=== PATIENT | female | born 1995 | race Caucasian/White ===

== ENCOUNTER 2017-12-25 18:44 | Emergency (ER) | payer MEDICAID ==
[2017-12-25 19:41] LABS: % EOSINOPHILS 2.2 % (0.0-5.0); % LYMPHOCYTES 19.9 % (20.0-50.0); % MONOCYTES 5.8 % (2.0-10.0); % NEUTROPHILS 72.1 % (40.0-80.0); EOSINOPHILE ABSOLUTE 0.3 Th/cmm (0.1-0.4); HEMATOCRIT 37.8 % (41.0-60); HEMOGLOBIN 12.5 gm/dL (12-16); LYMPHOCYTE ABSOLUTE 2.3 Th/cmm (1.5-3.0); MEAN CORPUSCULAR HEMOGLOBIN 28.8 pg (27.0-31.0); MEAN CORPUSCULAR HGB CONC 33.1 pg (28.0-36.0); MEAN PLATELET VOLUME 8.4 fl; MONOCYTE ABSOLUTE 0.7 Th/cmm (0.3-1.0); NEUTROPHILE ABSOLUTE 8.4 Th/cmm (1.8-8.0); PLATELET COUNT 260 Th/cmm (150-400); RED BLOOD COUNT 4.35 Mil/cmm (3.80-5.10); RED CELL DISTRIBUTION WIDTH 16.9 % (11.5-20.0); WHITE BLOOD COUNT 11.7 Th/cmm (4.8-10.8)
[2017-12-25] MEDS: cefTRIAXone 1 GM in Sodium Chloride 0.9% 50 ML IV ONE (19:45)
--- NOTE | 2017-12-25 19:54 | ER Physician Documentation ---
DATE OF SERVICE: 12/25/2017 EMERGENCY ROOM EVALUATION AND TREATMENT She is a 22-year-old just got 2 months ago and the patient had a boil about the middle upper, middle part of the thigh and actually patient was shaving and most likely it is from the shaving that she might have got some boil developed over in that area and the patient had some purulent discharge and still about an inch in size, a boil type thing is there, redness is there, warmth is there and still somewhat painful. The patient, hence came to the hospital. The patient will be given ceftriaxone, vancomycin and oral antibiotics, some lab workup would be done. HISTORY OF PRESENT ILLNESS: The patient has been stable for one week and then it is getting worse, but after the purulent discharge came out, she feels a little better. REVIEW OF SYSTEMS: A 12-point review of systems is essentially benign and negative. EYES: No history of double vision, blurring blindness. CENTRAL NERVOUS SYSTEM: No history of TIA, stroke, encephalitis, meningitis. PULMONARY: No history of pneumonia, TB, pulmonary embolism, etc. Occasionally smokes weed. GASTROINTESTINAL WISEE: The patient does not have any diarrhea, constipation, vomiting. No history of abdominal pain. The patient had a baby about 2 months ago. This is a girl delivered in October, normal vaginal delivery. The patient till now had about 3 children, first one was a premature at 35 weeks. This last one is premature at 36 weeks and the second one was a normal delivery. ENDOCRINE: No history of diabetes mellitus. No history of elevated blood sugars. No history of obesity noted at least reported to us but the weight according to her height is somewhat higher. Her height is 5 feet 6 inches, weighing 170 pounds, which is somewhat higher point. GENITOURINARY: No burning, frequency, dysuria, pelvic inflammatory disease is absent. No tenderness in the upper abdomen. Christianson sign is negative. No tenderness in the lower abdomen. So, 12-point review of systems is essentially negative. Cancer, etc., is negative. PHYSICAL EXAMINATION: VITAL SIGNS: Temperature is 98.2, pulse is 118, respirations 18, blood pressure 112/67, oxygen saturation is 99%. Last menstrual period was 1 month ago. Vaccinations are all okay. Tetanus etc., are all okay. Other general examination is all benign and negative. Peripheral pulses demonstrated a normal. Neuro exam is benign and negative. No meningeal signs. No evidence of any seizures, convulsions, paralysis, etc. The patient has a boil about 1 inch size in the left upper inner part of the thigh. She says while she was shaving maybe it might have been some injury because of shaving leading to this thing. She does not have diabetes mellitus. She does not have excessive sugar. Her grandmother and grandparents have diabetes mellitus, but father, mother, brother, sisters, nobody has any diabetes mellitus. The patient will be given ceftriaxone and vancomycin and lab workup in the form of CBC, CMP, lactic acid, A1c panel will be done and if everything is reasonably good the patient will be discharged home. There is no discharge coming out from that site. Peripheral pulses are normal. CLINICAL IMPRESSION: 1. The boil is present. 2. Other history that she gives is that the patient has 2 premature, first one and the third one, 35 weeks and 36 weeks. 3. Grandparents have diabetes mellitus. Parents do not have it. 4. The patient occasionally once or twice a year smokes weed, but otherwise nothing much done. She says she smokes here, that I see here the is positive. Clinical impression is the boil only and that a mild extra weight in the body that she might need to decrease it by exercising and eating less and working more and less saturated fat, less sugar. Hopefully, she should get better. She came from home. The patient, after we get the lab results and other things, will be hopefully discharged to home. [facility]# [id number]
[2017-12-25 20:00] LABS: ALB/GLOB RATIO 1.6 (1.0-1.8); ALBUMIN 4.3 gm/dL (3.7-5.3); ALKALINE PHOSPHATASE 61 U/L (34-104); ANION GAP 14.1 (7.0-16.0); BILIRUBIN,TOTAL 0.4 mg/dL (0.3-1.0); BUN - UREA NITROGEN 8 mg/dL (7-25); CALCIUM SERUM 9.3 mg/dL (8.6-10.3); CARBON DIOXIDE 21.9 mEq/L (21.0-31.0); CHLORIDE 106 mEq/L (98-107); CREATININE - SERUM 0.6 mg/dL (0.6-1.2); GFR AFRICAN-AMERICAN > 60.0 ml/min (>90); GFR NON AFRICAN-AMERICAN > 60.0 ml/min; GLUCOSE 84 mg/dL (70-105); SGOT 12 U/L (13-39); SGPT/ALT 11 U/L (7-52); SODIUM SERUM 138 mEq/L (136-145)
[2017-12-25 20:08] LABS: A1C % 5.3 % (4.0-6.0)
--- NOTE | 2017-12-25 21:03 | ER Physician Documentation ---
DATE OF SERVICE: 12/25/2017 ADDENDUM: The patient was given IV Rocephin and then followed by IV vancomycin. When IV vancomycin was given, patient started to get itchy and redness and a headache and obviously it is early manifestation of allergy to vancomycin, so vancomycin was immediately stopped by the nurse and the patient was advised to take Benadryl injections. The patient does not want Benadryl injection. The patient wants Benadryl capsules, so the patient was given 50 mg Benadryl capsule. All the risks, complications, alternatives, indication about taking the Benadryl and not taking Benadryl. IM Benadryl would be faster, better and more effective to her, but she refused it, so that is why p.o. Benadryl has been given to the patient. Let us see if we get some lab results. LABORATORY DATA: We got some results which shows white count to be 11.7, hemoglobin to be 12.5, hematocrit 37.8, platelet count 260 pounds. Neutrophils are 72.1, lymphocytes 19.9. Electrolytes: Sodium 138, potassium 4, chloride 106, CO2 21.9, BUN is 18, creatinine 0.6. Hemoglobin A1c is 1.3, AST is 12, alkaline phosphatase is 61, albumin and globulin is normal. test is negative. The patient has evidence of that boil, it is confirmed. There is no evidence of any septicemia, septic shock, etc. HOSPITAL COURSE: After the patient getting the Benadryl injection, the patient will get to go home on p.o. doxycycline 100 mg b.i.d., Septra double strength 1 tablet twice a day. Plenty of oral fluids and if the pus comes out from that boil, there is already a discharge which came out from that boil area in the past, now the boil area has been quitened down, the redness is less. The patient is improved and she is going home. FINAL DIAGNOSES: 1. Boil in the left upper medial part of the thigh. 2. 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 3. Mild obesity. 4. Two early deliveries, first one at the 35 weeks and the second one at 36 weeks. JOB# [id number]
== END 2017-12-25 20:45 | disposition home or self-care (01) ==
LOC: ER 18:44
DX: L02.426 Furuncle of left lower limb (principal); E66.01 Morbid (severe) obesity due to excess calories; Z88.1 Allergy status to other antibiotic agents
CPT/HCPCS: 36415-UA; 80053-TC; 83036-90; 83605; 84703-TC; 85025-TC; J0696; J3370